=== PATIENT | female | born 1970 | race Caucasian/White ===

== ENCOUNTER 2025-05-15 17:14 | Emergency (ER) | payer MEDICAID, SELFPAY ==
[2025-05-15 17:15] VITALS: BMI 37.8
[2025-05-15 17:25] VITALS: BP 181/94; BP 189/103; PULSE 105; RESP 18; TEMP 36.8; O2SAT 98
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
[2025-05-15] MEDS: ACETAMINOPHEN 500 MG TABLET 1000 MG PO (19:15)
== END 2025-05-15 21:05 | disposition home or self-care (01) ==
PROVIDERS: Emergency Provider Emergency Medicine; PCP Family Medicine
DX: S06.0XAA Concussion with loss of consciousness status unknown, initial encounter (principal); E66.9 Obesity, unspecified; I10 Essential (primary) hypertension; S09.93XA Unspecified injury of face, initial encounter; S20.229A Contusion of unspecified back wall of thorax, initial encounter; S60.221A Contusion of right hand, initial encounter; Z85.820 Personal history of malignant melanoma of skin; Y04.0XXA Assault by unarmed brawl or fight, initial encounter
CPT/HCPCS: 70450; 73130; 99283; A9270